=== PATIENT | male | born 1980 | race Two or more races ===

== ENCOUNTER 2020-06-09 15:37 | Emergency (ER) | payer OTHER ==
--- NOTE | 2020-06-09 17:29 | ER Document Report ---
ED Extremity Problem, Upper - General Chief Complaint: Shoulder Pain Stated Complaint: FALL Time Seen by Provider: 06/09/20 17:21 Primary Care Provider: RONALD MAR PA-C [Primary Care Provider] - Follow up as needed Mode of Arrival: Ambulatory Information source: Patient Notes: 40-year-old male presented to ED for complaint of chronic back pain and left shoulder pain since 06/07/2020. He states he fell on the 26 while wrapping presents. He does have a large ecchymotic area to the left shoulder. He has full range of motion to the shoulder. He does have some tenderness to the top of the shoulder. He is alert oriented respirations regular nonlabored speaking in full sentences. He states he does have past medical history of fractured arms and legs. Constitutional: Negative for fever. HENT: Negative for sore throat. Eyes: Negative for visual changes. Cardiovascular: Negative for chest pain. Respiratory: Negative for shortness of breath. Gastrointestinal: Negative for abdominal pain, vomiting or diarrhea. Genitourinary: Negative for dysuria. Musculoskeletal: Pain and bruising to the left shoulder he has full range of motion Skin: Negative for rash. Neurological: Negative for headaches, weakness or numbness. 10 point ROS negative except as marked above and in HPI. PHYSICAL EXAMINATION: GENERAL: Well-appearing, well-nourished and in no acute distress. HEAD: Atraumatic, normocephalic. EYES: Pupils equal round extraocular movements intact, conjunctiva are normal. ENT: Nares patent NECK: Normal range of motion LUNGS: No respiratory distress Musculoskeletal: Tenderness to left shoulder with palpation he does have full range of motion to the shoulder he does have ecchymotic area to the top of the shoulder. NEUROLOGICAL: Normal speech, normal gait. PSYCH: Normal mood, normal affect. SKIN: Ecchymosis to the top of the shoulder area. TRAVEL OUTSIDE OF THE [place] IN LAST 30 DAYS: No - HPI Patient complains to provider of: Injury, Pain, Left Onset: Other - 06/07/2020 Recent injury: Yes Where: Home Quality of pain: Achy Pain Level: 5 - Refused any medication Tylenol Motrin anything at this time Context: Fall - Related Data Allergies/Adverse Reactions: No Known Allergies Allergy (Verified 12/29/15 17:41) Past Medical History - General Information source: Patient - Social History Smoking Status: Current Every Day Smoker Cigarette use (# per day): Yes - Half pack a day Smoking Education Provided: Yes - 3 minutes Frequency of alcohol use: Heavy - 6 pack a day Drug Abuse: Marijuana Family History: Reviewed & Not Pertinent Patient has homicidal ideation: No - Past Medical History Cardiac Medical History: Reports: None Pulmonary Medical History: Reports: None EENT Medical History: Reports: None Neurological Medical History: Reports: None Endocrine Medical History: Reports: None Renal/ Medical History: Reports: None Malignancy Medical History: Reports None GI Medical History: Reports: None Musculoskeletal Medical History: Reports Hx Arthritis, Reports Hx Musculoskeletal Deformity, Reports Hx Musculoskeletal Trauma Skin Medical History: Reports None Psychiatric Medical History: Reports: None Traumatic Medical History: Reports: Hx Fractures - Arms and legs Infectious Medical History: Reports: None Surgical Hx: Negative Past Surgical History: Reports: None - Immunizations Hx Diphtheria, Pertussis, Tetanus Vaccination: Yes Physical Exam - Vital signs Vitals: Temp Pulse Resp BP Pulse Ox 98.1 F 96 20 128/91 H 97 06/09/20 17:06 06/09/20 17:06 06/09/20 17:06 06/09/20 17:06 06/09/20 17:06 Course - Re-evaluation Re-evalutation: 06/09/20 19:26 Discussed x-ray with patient written report of x-ray given to patient. Patient was instructed to follow-up with primary care and/or orthopedics. He was given instructions concerning his alcohol and cigarette habits. - Vital Signs Vital signs: Temp Pulse Resp BP Pulse Ox 98.5 F 85 16 145/97 H 98 06/09/20 19:23 06/09/20 19:23 06/09/20 19:23 06/09/20 19:23 06/09/20 19:23 - Laboratory Results Critical Laboratory Results Reviewed: No Critical Results - Radiology Results Critical Radiology Results Reviewed: No Critical Results Discharge - Discharge Clinical Impression: Contusion of left shoulder, initial encounter Fall Qualifiers: Encounter type: initial encounter Qualified Code(s): W19.XXXA - Unspecified fall, initial encounter Condition: Stable Disposition: HOME, SELF-CARE Additional Instructions: CONTUSION: Your injury has resulted in a contusion -- a crushing of the deep tissues. No injury to important structures was detected during the physician's exam. Contusions vary in the amount of pain they cause, and in the length of time required for healing. Typically, the area will become bruised, and will remain painful to touch for two or three weeks. However, most patients are back to working and playing within a few days. After the initial period of rest and cold-packs, your symptoms (together with the doctor's recommendations) will determine how rapidly you can get back to full activity. Usually this means "do what feels okay, but don't do things that hurt." If re-examination was recommended, it's important to follow up as instructed. Call the doctor or return any time if pain increases, if swelling becomes severe, if you develop numbness or weakness in an injured extremity, or if any other alarming symptoms occur. USE OF TYLENOL (ACETAMINOPHEN): Acetaminophen may be taken for pain relief or fever control. It's much safer than aspirin, offering a wider range of "safe" dosages. It is safe during . Some brand names are Tylenol, Panadol, Datril, Anacin 3, Tempra, and Liquiprin. Acetaminophen can be repeated every four hours. The following are maximum recommended dosages: WEIGHT Dose Drops Elixir Chewable(80mg) (LBS.) drprs=droppers tsp=teaspoon 6 40 mg 0.4 ml (1/2) 6-11 80 mg 0.8 ml (full) tsp 1 tab 12-16 120 mg 1 1/2 drprs 3/4 tsp 1 1/2 tabs 17-23 160 mg 2 drprs 1 tsp 2 tabs 24-30 240 mg 3 drprs 1 1/2 tsp 3 tabs 30-35 320 mg 2 tsp 4 tabs 36-41 360 mg 2 1/4 tsp 4 1/2 tabs 42-47 400 mg 2 1/2 tsp 5 tabs 48-53 480 mg 3 tsp 6 tabs 54-59 520 mg 3 1/4 tsp 6 1/2 tabs 60-64 560 mg 3 1/2 tsp 7 tabs 65-70 600 mg 3 3/4 tsp 7 1/2 tabs 71-76 640 mg 4 tsp 8 tabs 77-82 720 mg 4 1/2 tsp 9 tabs 83-88 800 mg 5 tsp 10 tabs >89 pounds or adults 650 mg to 900 mg Acetaminophen can be repeated every four hours. Maximum dose not to exceed 4000 mg a day. These maximum recommended dosages are slightly higher than the dosages written on the product container, but these dosages are very safe and below the toxic dosage for acetaminophen. ICE PACKS: Apply ice packs frequently against the painful area. Many different schedules are recommended, such as "20 minutes on, 20 minutes off" or "one hour ice, two hours rest." If you need to work, you may need to go longer between ice treatments. You should plan to have the area ice packed AT LEAST one fourth of the time. The ice should be applied over the wrap, tape, or splint, or over a layer of cloth -- not directly against the skin. Some ice bags have a built-in cloth and can be put directly on the skin. WARM PACKS: After approximately two days, apply gentle heat (such as a heating pad or hot water bottle) for about 20 to 30 minutes about every two hours -- at least four times daily. Warmth and elevation will help you make a more rapid recovery, and will ease the pain considerably. Do not use HOT heat, and never apply heat for longer than 30 minutes. The continuous heat can invisibly damage skin and muscles -- even when no burn is seen on the surface. Damaged muscles can make you MORE sore. Exercise Program for the Shoulder Since the shoulder moves in so many directions, the joint attachment is weak. Muscles provide most of the stability to the shoulder. You must exercise your shoulder to prevent painful instability or stiffening. PASSIVE - These may be begun within a few days of the injury. While standing, lean forward, allowing the arm to hang down towards the floor. Move the arm in small circles while slowly twisting your chest towards and away from the hanging arm. Do this for one minute. ACTIVE - These may be performed when the doctor gives permission. Begin with the arms at the sides. Raise the arms forward (shoulder's width apart) until they reach shoulder level. Then slowly swing both arms back until they are aiming straight out away from each other. Then bring them forward again, and finally, lower them to your sides. Repeat 20 to 30 times. As you improve, put weights in your hands for the exercise. Start with one pound, and work up to 10 pounds. Never use more than is comfortable. Athletes may work up to 30 pounds. FOLLOW-UP CARE: If you have been referred to a physician for follow-up care, call the physicians office for an appointment as you were instructed or within the next two days. If you experience worsening or a significant change in your symptoms, notify the physician immediately or return to the Emergency Department at any time for re-evaluation. Forms: Elevated Blood Pressure, Smoking Cessation Education Referrals: RONALD MAR PA-C [Primary Care Provider] - Follow up as needed TREVOR GIBBS DO [ACTIVE STAFF] - Follow up in 3-5 days
--- NOTE | 2020-06-09 18:58 | RADIOLOGY REPORT (SQ) ---
EXAM DESCRIPTION: SHOULDER LEFT 2 OR MORE VIEWS IMAGES COMPLETED DATE/TIME: 06/09/2020 5:43 pm REASON FOR STUDY: Left shoulder pain COMPARISON: None. NUMBER OF VIEWS: Three views. TECHNIQUE: Internal rotation, external rotation, and Y view images acquired of the left shoulder. LIMITATIONS: None. FINDINGS: MINERALIZATION: Normal. BONES: No acute fracture. No worrisome bone lesions. JOINTS: No dislocation. VISUALIZED LUNGS AND RIBS: No pneumothorax. No rib fracture. SOFT TISSUES: No radiopaque foreign body. OTHER: No other significant finding. IMPRESSION: NEGATIVE STUDY OF THE LEFT SHOULDER. NO RADIOGRAPHIC EVIDENCE OF ACUTE INJURY. TECHNICAL DOCUMENTATION: JOB ID: [id number] 2010 [employer]- All Rights Reserved Reading location - IP/workstation name: [email or web address]
[2020-06-09 19:23] VITALS: BP 145/97
== END 2020-06-09 19:24 | disposition home or self-care (01) ==
LOC: ER 15:37
DX: S40.012A Contusion of left shoulder, initial encounter (principal); W19.XXXA Unspecified fall, initial encounter; Y93.89 Activity, other specified; Y92.009 Unspecified place in unspecified non-institutional (private) residence as the place of occurrence of the external cause; F17.210 Nicotine dependence, cigarettes, uncomplicated; Z71.6 Tobacco abuse counseling; Z87.81 Personal history of (healed) traumatic fracture
CPT/HCPCS: 99283

== ENCOUNTER 2020-07-01 03:16 | Emergency (ER) | payer OTHER ==
[2020-07-01 04:42] LABS: APPEARANCE,URINE CLEAR; BILIRUBIN,URINE NEGATIVE (NEGATIVE); COLOR,URINE YELLOW; GLUCOSE, URINE NEGATIVE (NEGATIVE); KETONES,URINE NEGATIVE (NEGATIVE); LEUKOCYTE ESTERASE,URINE NEGATIVE (NEGATIVE); NITRITE,URINE NEGATIVE (NEGATIVE); PROTEIN,URINE NEGATIVE (NEGATIVE); URINE SPECIFIC GRAVITY 1.006
[2020-07-01 04:45] LABS: ABSOLUTE LYMPHOCYTES (AUTO) 0.8 10^3/uL (0.5-4.7); ABSOLUTE MONOCYTES (AUTO) 0.2 10^3/uL (0.1-1.4); ABSOLUTE NEUT (AUTO) 2.7 10^3/uL (1.7-8.2); BASOPHILS % (AUTO) 0.8 % (0-2); EOSINOPHILS % (AUTO) 0.1 % (0-6); HEMATOCRIT 38.3 % (37.9-51.0); HEMOGLOBIN 13.6 g/dL (13.5-17.0); LYMPHOCYTES % (AUTO) 20.9 % (13-45); MEAN CORPUSCULAR HEMOGLOBIN 35.9 pg (27.0-33.4); MEAN CORPUSCULAR HGB CONC 35.5 g/dL (32.0-36.0); MEAN CORPUSCULAR VOLUME 101 fl (80-97); RED BLOOD COUNT 3.79 10^6/uL (4.35-5.55); RED CELL DISTRIBUTION WIDTH 15.5 % (11.5-14.0); SEGMENTED NEUTROPHILS % (AUTO) 72.2 % (42-78); TOTAL CELLS COUNTED % (AUTO) 100 %; WHITE BLOOD COUNT 3.7 10^3/uL (4.0-10.5)
[2020-07-01 04:48] LABS: URINE AMPHETAMINES SCREEN NEGATIVE; URINE BARBITURATES SCREEN NEGATIVE; URINE BENZODIAZEPINES SCREEN NEGATIVE; URINE COCAINE SCREEN NEGATIVE; URINE METHADONE SCREEN NEGATIVE; URINE PHENCYCLIDINE SCREEN NEGATIVE
[2020-07-01 04:56] LABS: URINE MARIJUANA (THC) SCREEN UNCONFIRMED POSITIVE
[2020-07-01 05:03] LABS: ALBUMIN 4.8 g/dL (3.5-5.0); ALKALINE PHOSPHATASE 58 U/L (38-126); ANION GAP 14 (5-19); ASPARTATE AMINO TRANSFERASE 180 U/L (17-59); BILIRUBIN,DIRECT 0.3 mg/dL (0.0-0.4); BILIRUBIN,TOTAL 0.5 mg/dL (0.2-1.3); BLOOD UREA NITROGEN 4 mg/dL (7-20); CALCIUM 9.2 mg/dL (8.4-10.2); CARBON DIOXIDE 21 mmol/L (22-30); CHLORIDE 101 mmol/L (98-107); GLUCOSE 96 mg/dL (75-110); POTASSIUM 4.2 mmol/L (3.6-5.0); TOTAL PROTEIN 7.4 g/dL (6.3-8.2)
[2020-07-01 05:05] LABS: ACETAMINOPHEN < 10 ug/mL (10-30); SALICYLATE < 1.0 mg/dL (2.0-20.0)
[2020-07-01 05:11] LABS: PLATELET COUNT 101 10^3/uL (150-450)
[2020-07-01 05:14] LABS: ALCOHOL 334 mg/dL (NONE DETECTED)
--- NOTE | 2020-07-01 06:42 | ER Document Report ---
ED General - General Chief Complaint: Dizziness Stated Complaint: VISUAL HALLUCINATIONS Primary Care Provider: NICOLLE BRIAN PA-C [Primary Care Provider] - Follow up as needed TRAVEL OUTSIDE OF THE [place] IN LAST 30 DAYS: No - HPI Notes: Chief Complaint: Visual hallucinations Historian: History obtained from patient HPI: This is a 40-year-old male presents to the ER complaining of visual hallucinations that started around midnight tonight. Patient says he smoked marijuana this evening and then went to bed. He woke up couple of hours later with palpitations, shortness of breath, visual hallucination. Patient says his vision is "blurry" and he feels like he is on LSD. Reports feeling intoxicated. Says he has visual changes and things look different but not hallucinating people or things that are not there. Patient denies alcohol use or other drug/hallucinogenic use. Patient says his shortness of breath and palpitations resolved a few minutes after they had begun at home. No history of CAD, PE/DVT. He denies fever/chills, cough, abdominal pain, nausea vomiting diarrhea, or Covid contacts. Says he was tested for Covid around a month ago and was negative. Chart review notes multiple prior visits for alcohol and substance abuse related visits. ROS: Constitutional: no fevers. HEENT: no LUNDY, sore throat, or vision changes. CV: Palpitationsresolved Resp: Shortness of breathresolved GI: no abdominal pain, or n/v/d. : no dysuria, hematuria, or incont. MSK: no back pain, no joint swelling/redness. Skin: no rashes or itching. Neuro: no seizures, weakness, numbness, or confusion. Hematological: no ecchymosis or easy bleeding. Endocrine: no polyuria/polydipsia, no heat/cold intolerance. Psych: Visual hallucination. No SI/HI no auditory hallucinations. PMHx: Reviewed and agree as charted by RN. PSHx: Reviewed and agree as charted by RN. SOCHx: Reviewed and agree as charted by RN. FHX: No significant familial comorbid conditions directly related to patient com plaint Current Medications: Reviewed and agree with the patient medications as charted by the RN. Allergies: Reviewed and agree with the listed allergies as charted by the RN Physical Exam: Vitals: Reviewed in chart as documented by RN. General: Alert and in NAD. Head: Normocephalic; atraumatic Eyes: PERRLA, Conjunctivae clear sclerae non-icteric bilat ENT: no soft palate swelling or uvular deviation Neck: trachea midline, no unilateral swelling/tenderness/lymphadenopathy CV: RRR, no M/R/G; symmetric distal pulses Resp: respirations even and unlabored, CTA bilat. GI: abd soft and nondistended. NTTP. normal BS. no masses/HSM. no CVAT bilat MSK: FROM of all extremities. No midline CTL spine tenderness/deformity Skin: warm, moist, good turgor. no rash/lesions Neuro: Alert and oriented X 4. following CN 2-12 intact. no unilateral weakness/numbness Psych: No SI/HI. Visual hallucinations. No auditory hallucinations. Speech is clear and rational. Believes someone may have laced his marijuana with another drug, blood in that no other signs of paranoia or delusions. Medical Decision-making/Differential Diagnosis: Consider various etiologies including but not limited to primary psychiatric disorder, schizophrenia, bipolar, sevenths abuse, psychosis, ETOH abuse, ETOH w/d, anxiety/depression, panic attack, PTSD ingestion, co-ingestion, acute intra-cranial abnormality, infection, metabolic derangement, pulmonary/pleural base disease, ACS, PE- unlikely, dysrhythmia, electrolyte abnormality, dehydration, infectious process, ect plan for laboratory studies, UA, UDS, ETOH, ASA/salicylate levels, CXR, ECG, trop X 1, IVF prn. necessary, IVFs prn, observation and close frequent reassessments. prn psych consult - Related Data Allergies/Adverse Reactions: No Known Allergies Allergy (Verified 12/29/15 17:41) Past Medical History - Social History Smoking Status: Current Every Day Smoker Chew tobacco use (# tins/day): No Frequency of alcohol use: Heavy Drug Abuse: Marijuana Family History: Reviewed & Not Pertinent Musculoskeletal Medical History: Reports Hx Arthritis, Reports Hx Musculoskeletal Deformity, Reports Hx Musculoskeletal Trauma Traumatic Medical History: Reports: Hx Fractures - Arms and legs - Immunizations Hx Diphtheria, Pertussis, Tetanus Vaccination: Yes Physical Exam - Vital signs Vitals: Temp Pulse Resp BP Pulse Ox 98.9 F 80 18 132/83 H 100 07/01/20 03:22 07/01/20 03:22 07/01/20 03:22 07/01/20 03:22 07/01/20 03:22 Course - Re-evaluation Re-evalutation: 07/01/20 06:53 ETOH 333- pt had denies any etoh use w/ me. UDS positive for THC. pt does not appear acutely psychotic and denies SI/HI or delusions. Will let pt metabolize ETOH/substances and continue to monitor him. possible d/c if sx's resolve once substances metabolized. If sx's don't resolve, then psych consult will be ordered. 07/01/20 06:59 pending troponin, CXR 07/01/20 07:54 trop and CXR negative. Pt slept in the ED for the psat couple hours. Pt awoke and reports that his symptoms are resolved-denies any complaints at this time. He is alert and oriented X 4. speech is clear. PT has a friend that will pick him up from the ER. PT is clinically sober from an ER standpoint. pcp f/u this week. return factors discussed. - Vital Signs Vital signs: Temp Pulse Resp BP Pulse Ox 98.9 F 80 18 132/83 H 98 07/01/20 03:22 07/01/20 03:22 07/01/20 03:22 07/01/20 03:22 07/01/20 03:24 - Laboratory Results Result Diagrams: 07/01/20 04:07 07/01/20 04:07 Laboratory Results Interpreted: 07/01/20 07/01/20 07/01/20 04:07 04:07 04:07 WBC 3.7 L RBC 3.79 L MCV 101 H MCH 35.9 H RDW 15.5 H Plt Count 101 L Sodium 136.4 L Carbon Dioxide 21 L BUN 4 L AST 180 H ALT 110 H Urine Urobilinogen 2.0 H Salicylates < 1.0 L Acetaminophen < 10 L Serum Alcohol 334 H* Critical Laboratory Results Reviewed: No Critical Results - Radiology Results Critical Radiology Results Reviewed: No Critical Results Discharge - Discharge Clinical Impression: ETOH abuse Condition: Stable Disposition: HOME, SELF-CARE Additional Instructions: Follow all printed instructions. Follow up with your doctor in 2-3 days for re- check. Return to the ER if your condition worsens. Referrals: WALL,NICOLLE, PA-C [Primary Care Provider] - Follow up as needed
--- NOTE | 2020-07-01 07:29 | RADIOLOGY REPORT (SQ) ---
EXAM DESCRIPTION: XR CHEST 1 VIEW COMPLETED DATE/TME: 07/01/2020 07:15 CLINICAL HISTORY: 40 years, Male, palpitations, sob, hallucinations Comparison: None FINDINGS: No focal lung consolidation. No pleural effusion. No pneumothorax. Cardiac and mediastinal silhouette is unremarkable. No acute osseous abnormality. Soft tissues are unremarkable. IMPRESSION: No acute findings. No focal lung consolidation.
--- NOTE | 2020-07-01 07:32 | EKG REPORT ---
SEVERITY:- ABNORMAL ECG - SINUS RHYTHM NONSPECIFIC T ABNORMALITIES, ANT-LAT LEADS : Confirmed by: Giovanni Brock MD 01-Jul-2020 07:31:40
[2020-07-01 08:22] VITALS: BP 128/84
== END 2020-07-01 08:23 | disposition home or self-care (01) ==
LOC: ER 03:16
DX: F10.10 Alcohol abuse, uncomplicated (principal); F12.10 Cannabis abuse, uncomplicated; F17.200 Nicotine dependence, unspecified, uncomplicated; R44.1 Visual hallucinations; R00.2 Palpitations; R06.02 Shortness of breath
CPT/HCPCS: 36415; 71045; 80053; 80307; 81001; 84484; 85025; 93005; 93010; 99285